=== PATIENT | female | born 1995 | race Caucasian/White ===

== ENCOUNTER 2017-11-20 13:16 | Emergency (ER) | payer OTHER ==
[~2017-11-20] VITALS: Ht 157.5 cm; Wt 56.7 kg
== END 2017-11-20 15:32 | disposition home or self-care (01) ==
LOC: ER 13:16
DX: T65.891A Toxic effect of other specified substances, accidental (unintentional), initial encounter (principal); A27.89 Other forms of leptospirosis; Z20.828 Contact with and (suspected) exposure to other viral communicable diseases; W53.09XA Other contact with mouse, initial encounter; Y93.89 Activity, other specified; Y92.098 Other place in other non-institutional residence as the place of occurrence of the external cause; Y99.8 Other external cause status